=== PATIENT | female | born 1980 | race African-American/Black ===

== ENCOUNTER 2017-08-11 10:43 | Emergency (ER) | payer OTHER ==
[~2017-08-11] VITALS: Ht 167.6 cm; Wt 63.5 kg
[~2017-08-11 10:43] MED LIST: BENADRYL ALLERG25 MG PO; CAVAN-FOLATE D1 EACH PO; COLACE 100 MG100 MG PO; HYDROCODON-ACE1 EAC5 PO; HYDROCODON-ACE1 EAC7 PO; IBUPROFEN 600600 M1 PO; IBUPROFEN 800800 M1 PO; IRON325 PO; LEVOTHROID175 MCG PO; LEVOTHYROXIN0.112 M1 PO; LEVOTHYROXIN0.125 M1 PO; LORTAB 5 MG/5001 TAB PO; MOM RECTAL; NORCO 5-325 TA1 EACH PO; ONDANSETRON HCL4 M2 PO; PHENERGAN 25 MG25 M1 PO; PRENATAL FORMU1 EAC3 PO; SYNTHROID100 MCG PO; TRINATE TABLET1 TAB PO; ZOFRAN ODT4 MG PO; ZOFRAN4 MG PO
[2017-08-11] MEDS ORDERED: NORFLEX100 MG PO (12:03)
[2017-08-11] MEDS ORDERED: IBUPROFEN 800800 M1 PO (12:03)
== END 2017-08-11 12:22 | disposition home or self-care (01) ==
LOC: ER 10:43
DX: S16.1XXA Strain of muscle, fascia and tendon at neck level, initial encounter (principal); S39.012A Strain of muscle, fascia and tendon of lower back, initial encounter; E03.9 Hypothyroidism, unspecified; V89.2XXA Person injured in unspecified motor-vehicle accident, traffic, initial encounter; Y93.89 Activity, other specified; Y92.89 Other specified places as the place of occurrence of the external cause; Y99.8 Other external cause status